=== PATIENT | male | born 1995 | race Caucasian/White ===

== ENCOUNTER 2017-07-15 17:37 | Emergency (ER) | payer BC ==
--- NOTE | 2017-07-15 22:54 | ED ---
GI/ HPI - HPI Summary HPI Summary: Patient is a 22-year-old male who presents emergency department for a painless lump to his left testicle that he noticed yesterday. Pt. denies associated symptoms of fever, chills, dysuria, penile discharge, rashes. He has no past medical history. Symptoms are [id number] in severity. No current modifying factors. - History of Current Complaint Chief Complaint: EDUrogenitalProblems Time Seen by Provider: 07/15/17 20:36 Stated Complaint: LUMP ON TESTICLE Hx Obtained From: Patient Pain Intensity: 0 PMH/Surg Hx/FS Hx/Imm Hx Previously Healthy: Yes Infectious Disease History: No Infectious Disease History: Denies: Traveled Outside the [place] in Last 30 Days - Social History Occupation: Student Lives: Dormitory/Roommates Review of Systems Constitutional: Negative Negative: Fever, Chills Positive: other - painless lump to left testicle. Negative: burning, dysuria, discharge All Other Systems Reviewed And Are Negative: Yes Physical Exam Triage Information Reviewed: Yes Vital Signs On Initial Exam: Initial Vitals Temp Pulse Resp BP Pulse Ox 98.4 F 83 16 116/68 99 07/15/17 17:39 07/15/17 17:39 07/15/17 17:39 07/15/17 17:39 07/15/17 17:39 Vital Signs Reviewed: Yes Appearance: Positive: Well-Appearing - Patient lying on bed in no acute distress. Skin: Positive: Warm, Dry Eyes: Positive: Normal, HOWARD Neck: Positive: Supple Male Genital Exam: Positive: Other - Do not appreciate any solid masses to the testicles. I do palpate a left probable varicocele. No lesions or rashes.. Negative: Inguinal Tenderness, Testicular Tenderness (R), Testicular Tenderness (L), Urethral Discharge Diagnostics - Vital Signs Vital Signs Temp Pulse Resp BP Pulse Ox 07/15/17 21:18 98.8 F 56 16 105/65 98 07/15/17 17:39 98.4 F 83 16 116/68 99 - Laboratory Lab Statement: Any lab studies that have been ordered have been reviewed, and results considered in the medical decision making process. GIGU Course/Dx - Course Course Of Treatment: Patient presenting with mass to left testicle region. Suspect varicocele on exam. Will obtain urinalysis and ultrasound for further evaluation. Urinalysis negative for acute findings. Testicular ultrasound shows a varicocele without other acute findings, reading per night time radiologist. Results were discussed with patient. Advised Tylenol or Motrin for discomfort if needed. To wear supportive shorts. Will follow up with family doctor if needed. Patient understands and agrees with plan. - Diagnoses Differential Diagnoses - Male: Epididymitis, Testicular Torsion, Urethritis Provider Diagnoses: Varicocele Discharge - Sign-Out/Discharge Documenting (check all that apply): Discharge/Admit/Transfer - Discharge Plan Condition: Good Disposition: HOME Patient Education Materials: Varicocele (ED) Referrals: No Primary Care Phys,NOPCP [Primary Care Provider] - Additional Instructions: Follow up with [facility] if needed Can take tylenol or motrin for pain if needed Wear supportive underwear Return to the ER symptoms change or worsen - Billing Disposition and Condition Condition: GOOD Disposition: HOME
[2017-07-15 23:01] LABS: Urine Appearance Clear; Urine Blood Negative (Negative); Urine Color Yellow; Urine Ketones Negative (Negative); Urine Protein Negative (Negative); Urine Specific Gravity 1.019 (1.010-1.030); Urine Urobilinogen Negative (Negative)
[2017-07-16 00:13] VITALS: BP 112/65
--- NOTE | 2017-07-16 07:56 | RAD ---
INDICATION: Question mass left hemiscrotum. Evaluate for testicular mass. COMPARISON: None TECHNIQUE: Duplex interrogation of the scrotum was performed. FINDINGS: Testicles: The testicles are Normal in size and echogenicity. There is no evidence of testicular mass. There is symmetric flow on Doppler interrogation. There is no evidence of torsion.. The right testis measures 5.0 x 2.2 x 3.3 cm and the left 4.7 x 2.2 x 3.6 cm. There is symmetric flow on Doppler interrogation. Epididymides: There is no evidence of an epididymal mass. The epididymides are normal in size. There is symmetric flow on Doppler interrogation. The right epididymal head measures 0.9 x 0.7 cm and the left 0.9 x 1.3 cm. Hydroceles: None. Varicoceles: There are left-sided varicoceles. The palpable finding as indicated by the patient corresponds to multiple left-sided varicoceles which measure up to 0.4 cm with Valsalva maneuver. Other: None. IMPRESSION: LEFT-SIDED VARICOCELES.
== END 2017-07-16 00:14 | disposition home or self-care (01) ==
LOC: ED 17:37
DX: I86.1 Scrotal varices (principal)
CPT/HCPCS: 76870; 81003; 99282